=== PATIENT | female | born 1940 | race Caucasian/White ===

== ENCOUNTER 2017-02-03 14:48 | Observation (INO) | payer MEDICARE, OTHER ==
[~2017-02-03 14:48] MED LIST: ASPI81CH CHEW; AZEL0.05 EACH EYE; BENA40TA PO; FLUT50SP EACH NARE; LEVO75TA3 PO; MONT10TA4 PO; OMEP40CA2 PO; TYLETAB34 PO
[2017-02-03 17:26] VITALS: BP 173/97; PULSE 98; RESP 22; TEMP 97.9; O2SAT 95
[2017-02-03] MEDS ORDERED: NITROGLYCERIN 0.4 MG SL 25 TABS/BTL SL PRN (17:30)
[2017-02-03] MEDS ORDERED: ONDANSETRON HCL 4 MG/2 ML VIAL IV PUSH PRN (17:30)
[2017-02-03] MEDS ORDERED: SODIUM CHLORIDE 0.9% FLUSH 10 ML FLUSH IV FLUSH PRN (17:30)
[2017-02-03] MEDS ORDERED: ACETAMINOPHEN 500 MG CPLT PO PRN (17:30)
--- NOTE | 2017-02-03 18:17 | HHI.HP ---
[facility] Primary Care Physician Dr. Pranay Black Chief Complaint Chest pain History of Present Illness 76-year-old female with hypertension, hyperlipidemia, rheumatoid arthritis, and asthma presents to emergency room for further evaluation of chest pain. Onset last week. Location substernal. Characterized as pressure with radiation to bilateral jaw. No associated symptoms of shortness of breath, nausea, vomiting , or diaphoresis. Precipitating factors seem to be exertionally related. She normal walks each morning. Last week after waking 5 minutes she develops substernal chest pressure. She continues to walk then pain goes away after a few minutes. Total of 3 episodes last week. This morning developed chest pressure again when walking but symptoms did not resolve. She completed her walk despite chest pressure. Continued to have chest pressure once walk completed, noting radiation to left arm and middle of her back. The discomfort lasted all morning. Notified her daughter when they were eating lunch together , at that time daughter [facility] her [facility]. Since this morning pain has waxed and waned in intensity never completely going away. Reports yearly exercise stress testing and echocardiogram for a heart murmur. Continues to have chest pressure reported to be "mild." Review of Systems General: No fatigue,weakness, fever, chills, recent illness, or change in appetite. His been in her general state of health. HEENT: No LIGHT, no vision changes, many allergies uses fluticasone for nasal congestion and drainage CV: Continues to have chest pain as stated above. No palpitations or dizziness RESP: No SOB, cough, recent URI, or sputum production. GI: No nausea, vomiting, or bowel changes. : No dysuria, urgency, or urgency EXT: No lower leg edema, no paraesthesias MS: No discomfort or change in ROM, no trauma or injury. NEURO: No difficulty with balance, LOC, motor/sensory deficits PSYCH: No anxiety, depression, situational stress. SKIN: No rashes, no concerning lesions Past Family Social History Allergies: Coded Allergies: Iodinated Contrast- Oral and IV Dye (Verified Allergy, Severe, Hives, ) iodine (Verified Allergy, Severe, Hives, 02/03/17) peanut (Verified Allergy, Severe, Hives, 02/03/17) shellfish derived (Verified Allergy, Severe, Hives, 02/03/17) Past Medical History Hyperlipidemia, hypertension, asthma, rheumatoid arthritis, hypothyroidism Past Surgical History Thyroidectomy, cyst removed from breast, hysterectomy, cholecystectomy Reported Medications Reported Meds & Active Scripts Active Reported Omeprazole 40 Mg Cap 40 Mg PO DAILY Levothyroxine (Levothyroxine Sodium) 75 Mcg Tab 75 Mcg PO DAILY Benazepril (Benazepril HCl) 40 Mg Tab 40 Mg PO DAILY Montelukast (Montelukast Sodium) 10 Mg Tab 10 Mg PO HS Azelastine Opth Drops 0.05% Soln 1 Drop EACH EYE BID Fluticasone Nasal [place] 50 Mcg/Act Naspr 50 Mcg EACH NARE BID 50 mcg/spray Tylenol-Codeine #3 (Acetaminophen-Codeine) 300-30 mg Tab 1-2 Tab PO Q6H PRN Aspirin 81 Mg Chew 81 Mg CHEW DAILY Active Ordered Medications Current Medications Medications (Trade) Dose Ordered Sig/Kelsey Route Start Time Stop Time Status Last Admin (NS Flush) 2 ml UNSCH PRN IV FLUSH 02/03/17 17:30 (NS Flush) 2 ml BID IV FLUSH 02/03/17 21:00 (Tylenol) 500 mg Q4H PRN PO 02/03/17 17:30 (Zofran Inj) 4 mg Q6H PRN IV PUSH 02/03/17 17:30 (Nitrostat Sl) 0.4 mg Q5M PRN SL 02/03/17 17:30 (Aspirin) 325 mg DAILY PO 02/04/17 09:00 Family History Noncontributory for early onset cardiovascular disease. Sister CABG in her mid 60s. Social History Diagnosed hypertension 30 years ago and hyperlipidemia 20 years ago. No known diabetes or coronary artery disease. Lifelong nonsmoker. Denies any alcohol or illegal drug use. Endorses an active lifestyle, walking her neighborhood daily. Past cardiac testing [employer] [place], [place]. Recent stress test and echocardiogram April 2016. Reports yearly stress tests and echocardiogram for 20 years due to a known heart murmur, she is unsure what type of heart murmur. Never required a cardiac catheterization. Physical Exam Vital Signs Vital Signs Date Time Temp Pulse Resp B/P (MAP) Pulse Ox O2 Delivery O2 Flow Rate FiO2 02/03/17 17:26 97.9 98 22 173/97 (122) 95 Physical Exam GENERAL: Alert WN, WD, NAD, pleasant, elderly female HEAD: NC, AT EYES: Sclera clear, conjunctiva without injection, pupils equal and round ENT: Mucous membranes pink and moist, no nasal discharge or bleeding NECK: Supple, no masses, trachea midline, surgical scar CV: RRR, 2/6 systolic murmur, no JVD, S1-S2 no S3-S4. RESP: Clear lungs throughout bilateral, no crackles, wheeze, rhonchi, symmetrical chest rise, nonlabored, able to speak in full sentences ABD: Soft, NT, ND, no masses, positive bowel tones EXT: Pulses +24, no dependent edema MS: Normal tone 4 extremities, nontender, no obvious deformities, full range of motion NEURO: CN II through CN XII grossly intact, motor strength 5/5 PSYCH: A+O 3, pleasant affect, appropriate speech, appropriate mood and affect , insight and judgment SKIN: Normal turgor, normal texture, no lesions, no rashes Laboratory CBC unremarkable. CMP glucose 160 otherwise unremarkable. 2 sets troponin negative. Imaging Chest x-ray completed [place] [facility] read by radiologist as no acute disease Course EKG Normal sinus rhythm, left axis deviation, no ST or T-segment changes Caprini VTE Risk Assessment Caprini VTE Risk Assessment: Mod/High Risk (score >= 2) Caprini Risk Assessment Model Point Value = 1 Point Value = 2 Point Value = 3 Point Value = 5 Age 41-60 Minor surgery BMI > 25 kg/m2 Swollen legs Varicose veins or History of unexplained or recurrent spontaneous Oral contraceptives or hormone replacement Sepsis (< 1 month) Serious lung disease, including pneumonia (< 1 month) Abnormal pulmonary function Acute myocardial infarction Congestive heart failure (< 1 month) History of inflammatory bowel disease Medical patient at bed rest Age 61-74 Arthroscopic surgery Major open surgery (> 45 min) Laparoscopic surgery (> 45 min) Malignancy Confined to bed (> 72 hours) Immobilizing plaster cast Central venous access Age >= 75 History of VTE Family history of VTE Factor V Leiden Prothrombin [id number] Lupus anticoagulant Anticardiolipin antibodies Elevated serum homocysteine Heparin-induced thrombocytopenia Other congenital or acquired thrombophilia Stroke (< 1 month) Elective arthroplasty Hip, pelvis, or leg fracture Acute spinal cord injury (< 1 month) Prophylaxis Regimen Total Risk Factor Score Risk Level Prophylaxis Regimen 0-1 Low Early ambulation 2 Moderate Order ONE of the following: *Sequential Compression Device (SCD) *Heparin 5000 units SQ BID 3-4 Higher Order ONE of the following medications: *Heparin 5000 units SQ TID *Enoxaparin/Lovenox 40 mg SQ daily (WT < 150 kg, CrCl > 30 mL/min) *Enoxaparin/Lovenox 30 mg SQ daily (WT < 150 kg, CrCl > 10-29 mL/min) *Enoxaparin/Lovenox 30 mg SQ BID (WT < 150 kg, CrCl > 30 mL/min) AND/OR *Sequential Compression Device (SCD) 5 or more Highest Order ONE of the following medications: *Heparin 5000 units SQ TID (Preferred with Epidurals) *Enoxaparin/Lovenox 40 mg SQ daily (WT < 150 kg, CrCl > 30 mL/min) *Enoxaparin/Lovenox 30 mg SQ daily (WT < 150 kg, CrCl > 10-29 mL/min) *Enoxaparin/Lovenox 30 mg SQ BID (WT < 150 kg, CrCl > 30 mL/min) AND *Sequential Compression Device (SCD) Assessment and Plan Assessment and Plan #1 Chest pain-admitted to chest pain center. Rule out with 3 sets of EKGs, cardiac enzymes, and monitor on telemetry overnight. Will be seen and evaluated by Dr. Nawaf Marc. Obtained medical records from office. Discussed importance of following up with cottonseed meat presser if experiencing exercise intolerance with known heart murmur, suspect aortic stenosis. Education and time for questions provided. Further disposition to follow after using a cottonseed meat presser #2 Hypertension-continue benazepril #3 Hypothyroidism-continue levothyroxine #4 GERD-continue omeprazole #5 Asthma-continue montelukast #6 Hyperlipidemia-continue once placed on electrical medical record Sarah Maurice Feb 03, 2017 18:17
[2017-02-03 18:25] VITALS: BP 162/87; PULSE 84; RESP 16; TEMP 97.9; O2SAT 97
[2017-02-03] MEDS ORDERED: cloNIDine HCL 0.1 MG TAB PO PRN (19:00)
[2017-02-03 20:04] VITALS: BP 136/76; PULSE 90; RESP 18; TEMP 98.1; O2SAT 95
[2017-02-03] MEDS ORDERED: MONTELUKAST SODIUM 10 MG TAB PO SCH (21:00)
[2017-02-03 21:13] VITALS: PULSE 80
[2017-02-03] MEDS: FLUTICASONE PROPIONATE 50 MCG/ACT 16 GM NASAL SPRAY EACH NARE SCH (22:33)
[2017-02-03] MEDS: SODIUM CHLORIDE 0.9% FLUSH 10 ML FLUSH IV FLUSH SCH (22:33)
[2017-02-03] MEDS: OLOPATADINE HCL 0.1% OPHT SOLN 5 ML BTL EACH EYE SCH (22:34)
[2017-02-04] VITALS (10 sets, daily range): BP systolic 112–148; BP diastolic 61–76; PULSE 60–82; RESP 18–20; TEMP 98–98.2; O2SAT 96–99
[2017-02-04] MEDS ORDERED: LEVOTHYROXINE SODIUM 75 MCG TAB PO SCH (06:00)
[2017-02-04] MEDS: OLOPATADINE HCL 0.1% OPHT SOLN 5 ML BTL EACH EYE SCH (08:05)
[2017-02-04] MEDS: SODIUM CHLORIDE 0.9% FLUSH 10 ML FLUSH IV FLUSH SCH (08:05)
[2017-02-04] MEDS: FLUTICASONE PROPIONATE 50 MCG/ACT 16 GM NASAL SPRAY EACH NARE SCH (08:05)
[2017-02-04] MEDS ORDERED: PANTOPRAZOLE SOD 40 MG DELAYED RELEASE TAB PO SCH (09:00)
[2017-02-04] MEDS ORDERED: ASPIRIN 325 MG TAB PO SCH (09:00)
[2017-02-04] MEDS ORDERED: LISINOPRIL 20 MG TAB PO SCH (09:00)
[2017-02-04] MEDS ORDERED: REGADENOSON INJ 0.4 MG/5 ML SYR ONE (13:16)
--- NOTE | 2017-02-04 14:46 | RADRPT ---
EXAM DATE/TIME: 02/04/2017 12:48 [place] COMPARISON: No previous studies available for comparison. INDICATIONS : Substernal chest pain. Angina. Myocardial infarction. DOSE: 25.7 mCi Tc99m Myoview at stress. 8.5 mCi Tc99m Myoview at rest. 0.4 mg Lexiscan STRESS SYMPTOMS: Chest pain, headache. EJECTION FRACTION: > 70% MEDICAL HISTORY : Hypertension. Asthma. SURGICAL HISTORY : Tubal ligation. Hysterectomy. ENCOUNTER: Initial ACUITY: 1 day PAIN SCALE: 3/10 LOCATION: Substernal chest TECHNIQUE: The patient underwent pharmacologic stress with infusion of prescribed dose. Continuous ECG tracing was monitored during stress. Gated SPECT imaging was performed after stress and conventional SPECT i maging was performed at rest. The examination was performed on a SPECT/CT scanner, both attenuation and non-corrected datasets were reviewed. FINDINGS: DISTRIBUTION: The maximum perfused segment at stress is in the anterior wall. PERFUSION STUDY: The pattern of perfusion at stress is within normal limits. GATED STUDY: There is intact wall motion and thickening without hypokinetic or dyskinetic segments. CONCLUSION: No evidence of fixed or stress-induced perfusion abnormalities. RISK CATEGORY: Low (<1% Annual Mortality Rate) Sam Barrios MD on February 04, 2017 at 14:43 Board Certified Radiologist. This report was verified electronically.
--- NOTE | 2017-02-04 15:25 | HHI.DCPOC ---
Discharge Care Plan Diagnosis: (1) Chest pain (2) Hypertension (3) Hyperlipidemia (4) Hypothyroidism (5) GERD (gastroesophageal reflux disease) (6) Asthma Goals to Promote Your Health * To prevent worsening of your condition and complications * To maintain your health at the optimal level Directions to Meet Your Goals Take your medications as prescribed Follow your dietary instruction Follow activity as directed Keep your appointments as scheduled Take your immunizations and boosters as scheduled If your symptoms worsen call your PCP, if no PCP go to Urgent Care Center or Emergency Room Smoking is Dangerous to Your Health. Avoid second hand smoke Call the 24-hour hour crisis hotline for domestic abuse at Adelso Batres Feb 04, 2017 15:25
--- NOTE | 2017-02-04 17:42 | TR ---
Date Performed: 02/04/2017 Time Performed: 13:32:36 DOCTOR: Nawaf Marc DRUG LIST: CLINICAL HISTORY: ANGINA REASON FOR TEST: REASON FOR ENDING: OBSERVATION: CONCLUSION: Lexiscan stress test was performed under standard four minute protocol. Radionuclid e was injected one minute prior to ending the test. No electrocardiographic abormalities were present to suggest ischemia. Nuclear imaging and interpretation are pending. COMMENTS:
--- NOTE | 2017-02-04 18:15 | EKG ---
Date Performed: 02/03/2017 Time Performed: 22:53:55 PTAGE: 76 years EKG: Sinus rhythm WITH FIRST DEGREE AV BLOCK MARKED LEFT AXIS DEVIATION ABNORMAL ECG PREVIOUS TRACING : 02/03/2017 20.01 Since previous tracing, no significant change noted DOCTOR: Nawaf Marc Interpretating Date/Time 02/04/2017 18:14:38
--- NOTE | 2017-02-04 18:20 | EKG ---
Date Performed: 02/03/2017 Time Performed: 20:01:10 PTAGE: 76 years EKG: Sinus rhythm MARKED LEFT AXIS DEVIATION MINIMAL ST DEPRESSION ABNORMAL ECG NO PREVIOUS TRACING DOCTOR: Nawaf Marc Interpretating Date/Time 02/04/2017 18:18:51
== END 2017-02-04 17:50 | disposition home or self-care (01) ==
LOC: NEDDLT 14:48 → NEPFCDU 17:14
PROVIDERS: ADMIT Internal Medicine Interventional Cardiology; ATTEND Internal Medicine Interventional Cardiology
DX: R07.9 Chest pain, unspecified (principal); M06.9 Rheumatoid arthritis, unspecified; J45.909 Unspecified asthma, uncomplicated; I10 Essential (primary) hypertension; E78.5 Hyperlipidemia, unspecified; Z79.899 Other long term (current) drug therapy; R01.1 Cardiac murmur, unspecified; K21.9 Gastro-esophageal reflux disease without esophagitis; E03.9 Hypothyroidism, unspecified; R94.31 Abnormal electrocardiogram [ECG] [EKG]
CPT/HCPCS: 71010; 78452; 80048; 82550; 82552; 83735; 84484; 85025; 85610; 85730; 93005; 93017; A9502; G0378; J2785; 99281